=== PATIENT | female | born 1975 | race Asian ===

== ENCOUNTER 2019-02-21 09:15 | Emergency (ER) | payer OTHER ==
[~2019-02-21] VITALS: Ht 175.3 cm; Wt 81.6 kg
[2019-02-21 09:20] VITALS: TEMP 98
[2019-02-21 10:08] LABS: PLATELET COUNT 293 K/uL (152-353)
[2019-02-21 10:09] LABS: POTASSIUM 3.6 mmol/L (3.6-5.2)
[2019-02-21 12:00] VITALS: BP 126/78
== END 2019-02-21 12:00 | disposition short-term general hospital (02) ==
LOC: ED 09:15
PROVIDERS: Emergency Medicine
DX: R79.89 Other specified abnormal findings of blood chemistry (principal); X50.9XXA Other and unspecified overexertion or strenuous movements or postures, initial encounter; Y93.F2 Activity, caregiving, lifting
CPT/HCPCS: 36415; 80053; 85027; 85379; 96374; 96375; 99284; J1885; J2175; J2405

== ENCOUNTER 2019-02-21 12:01 | Outpatient (CLI) | payer OTHER | END 2019-02-21 12:38 | disposition short-term general hospital (02) | LOC: AMB 12:01 | DX: M79.661 Pain in right lower leg (principal); R79.1 Abnormal coagulation profile | CPT/HCPCS: A0425; A0429 ==

== ENCOUNTER 2019-12-28 09:58 | Outpatient (CLI) | payer OTHER | END 2019-12-28 19:19 | disposition home or self-care (01) | LOC: MAMMO 09:58 | DX: Z12.31 Encounter for screening mammogram for malignant neoplasm of breast (principal) ==

== ENCOUNTER 2020-01-30 19:51 | Emergency (ER) | payer OTHER ==
[~2020-01-30] VITALS: Ht 175.3 cm; Wt 83.9 kg
[2020-01-30 21:39] LABS: PLATELET COUNT 240 K/uL (152-353)
[2020-01-30 21:44] LABS: POTASSIUM 3.5 mmol/L (3.6-5.2)
[2020-01-30 22:40] VITALS: BP 123/68; TEMP 98.7
== END 2020-01-30 22:46 | disposition home or self-care (01) ==
LOC: ED 19:51
PROVIDERS: Family Medicine
DX: N93.8 Other specified abnormal uterine and vaginal bleeding (principal); D64.89 Other specified anemias
CPT/HCPCS: 80053; 84702; 85027; 99283; J1885

== ENCOUNTER 2022-06-19 11:24 | Outpatient (CLI) | payer OTHER | END 2022-06-19 19:01 | disposition home or self-care (01) | LOC: MAMMO 11:24 | PROVIDERS: ATTEND Family Medicine | DX: Z12.31 Encounter for screening mammogram for malignant neoplasm of breast (principal) ==